=== PATIENT | female | born 1950 | race Two or more races ===

== ENCOUNTER 2017-07-19 09:54 | Outpatient (CLI) | payer OTHER | END 2017-07-19 10:09 | disposition home or self-care (01) | LOC: RAD 501 09:54 | DX: M54.2 Cervicalgia (principal); M25.511 Pain in right shoulder; M25.521 Pain in right elbow ==

== ENCOUNTER 2022-01-13 13:09 | Outpatient (CLI) | payer OTHER | END 2022-01-13 13:21 | disposition home or self-care (01) | LOC: RAD 13:09 | PROVIDERS: ATTEND Orthopaedic Surgery | DX: M25.562 Pain in left knee (principal); M79.672 Pain in left foot ==

== ENCOUNTER 2022-01-18 09:36 | Outpatient (CLI) | payer OTHER | END 2022-01-18 09:39 | disposition home or self-care (01) | LOC: NUCLEAR 09:36 | PROVIDERS: ATTEND Orthopaedic Surgery | DX: M81.0 Age-related osteoporosis without current pathological fracture (principal) ==

== ENCOUNTER 2022-01-18 10:53 | Outpatient (CLI) | payer OTHER | END 2022-01-18 10:54 | disposition home or self-care (01) | LOC: RAD 10:53 | PROVIDERS: ATTEND Orthopaedic Surgery | DX: M25.552 Pain in left hip (principal); M79.672 Pain in left foot ==

== ENCOUNTER 2025-03-18 08:18 | Outpatient (CLI) | payer OTHER | END 2025-03-18 08:28 | disposition home or self-care (01) | LOC: MAMO-SONO 08:18 | DX: N64.4 Mastodynia (principal); Z12.31 Encounter for screening mammogram for malignant neoplasm of breast ==

== ENCOUNTER → 2025-04-01 11:41 | Outpatient (CLI) | payer OTHER | END | disposition home or self-care (01) | LOC: NUCLEAR 09:30 | DX: M81.0 Age-related osteoporosis without current pathological fracture (principal) ==